=== PATIENT | male | born 1990 | race Caucasian/White ===

== ENCOUNTER 2019-05-03 21:39 | Emergency (ER) | payer SELFPAY ==
[~2019-05-03] VITALS: Ht 180.3 cm; Wt 75.0 kg
[2019-05-03] MEDS ORDERED: LORazepam 1MG TABLET PO ONE (22:00)
--- NOTE | 2019-05-03 22:03 | NUR ---
PT AMBUALTORY TO ED [facility] FROM "HOME" (STAYING [facility]). STATES EARLIER TODAY "EVERYTHING JUST CAME TO A HEAD AND I COULDNT CONTROL IT AND I TRIED TO GET THE GUN OUT OF MY LOCKBOX BUT I COULDNT FIND THE KEYS AND I THOUGHT I CANT DO THIS AT SOMEONE ELSES HOUSE SO I CALLED [phone]". PT COOPERATIVE BUT TEARFUL, SLIGHTLY ANXIOUS. PT STATES HE HAS HAD IN PATIENT THERAPY FOR DETOX OF ETOH IN PAST & PLACED ON DEPRESSION MEDS, BUT THAT WAS 4 YRS AGO. PT STATES HE DRANK ~1-15 DRINKS TODAY, DENIES ANY DRUG USE TODAY. CHANGED INTO GOWN. BELONGSING PLACED IN LOCKER. PT UNABLE TO PROVIDE URINE SAMPLE AT THIS TIME. GIVEN BLANKET. SITTER OUTSIDE OF ROOM. WILL CTM.
[2019-05-03] MEDS ORDERED: LORazepam 1MG TABLET ONE (22:08)
[2019-05-03 22:20] LABS: BASOPHILS # (AUTO) 0.03 x10^3/uL (0-0.1); BASOPHILS % (AUTO) 0 % (0-1); EOSINOPHILS # (AUTO) 0.15 x10^3/uL (0-0.4); EOSINOPHILS % (AUTO) 2 % (1-7); LYMPHOCYTES # (AUTO) 2.03 x10^3/uL (1-3.4); LYMPHOCYTES % (AUTO) 24 % (22-44); MD NO; MEAN CORPUSCULAR HEMOGLOBIN 30.7 pg (27.5-34.5); MEAN CORPUSCULAR HGB CONC 32.8 g/dL (33.2-36.2); MEAN CORPUSCULAR VOLUME 93.7 fL (81-97); MEAN PLATELET VOLUME 7.4 fL (7.4-10.4); MONOCYTES # (AUTO) 0.88 x10^3/uL (0.2-0.8); MONOCYTES % (AUTO) 11 % (2-9); NEUTROPHILS # (AUTO) 5.28 x10^3/uL (1.8-6.8); NEUTROPHILS % (AUTO) 63 % (42-75); PLATELET COUNT 325 x10^3/uL (130-400); RED BLOOD COUNT 5.23 x10^6/uL (4.38-5.82); RED CELL DISTRIBUTION WIDTH 14.3 % (9.4-14.8)
[2019-05-03] MEDS ORDERED: PLEASE ENTER ALLERGIES MC SCH (22:30)
[2019-05-03 22:33] LABS: ALBUMIN 3.8 g/dL (3.4-5.0); ANION GAP 8 mmol/L (5-15); CALCIUM 8.3 mg/dL (8.5-10.1); CHLORIDE 110 mmol/L (98-107)
[2019-05-03 22:36] LABS: CREATININE 0.87 mg/dL (0.7-1.3); SALICYLATE LEVEL < 1.7 mg/dL (2.8-20.0)
--- NOTE | 2019-05-03 23:20 | NUR ---
PT APPEARS SLIGHTLY LESS ANXIOUS. RESTING ON CART. RR EVEN NON LABORED. SITTER OUTSIDE OF ROOM. WILL CTM.
[2019-05-04] MEDS ORDERED: LISI-167 PO (00:23)
--- NOTE | 2019-05-04 00:25 | NUR ---
PT RESTING ON SUE, STATED " I HAVE BEEN HAVING SUICIDAL THOUGHTS FOR COUPLE WEEKS", PLAN IS TO SHOOT HIMSELF. PROVIDED PT WITH CUP FOR URINE SAMPLE. ROOM SECURED AND SITTER AT DOORWAY FOR CONTINOUS MONITORING
--- NOTE | 2019-05-04 00:34 | NUR ---
URINE SAMPLE SENT
--- NOTE | 2019-05-04 00:59 | NUR ---
PT SITTING UP ON GURNEY WITH EYES CLOSED, REPIRATIONS EVEN AND UNLABORED, SITTER AT DOORWAY FOR CONTINOUS MONITORING
[2019-05-04 01:08] LABS: AMPHETAMINE SCREEN, URINE Negative (Negative); BARBITURATE SCREEN, URINE Negative (Negative); BENZODIAZEPINE SCREEN, URINE Negative (Negative); CANNABINOID SCREEN, URINE Negative (Negative); COCAINE SCREEN, URINE Negative (Negative); METHADONE SCREEN, URINE Negative (Negative); OPIATE SCREEN, URINE Negative (Negative)
--- NOTE | 2019-05-04 01:58 | NUR ---
PT RESTING ON GURNEY WITH EYES CLOSED, RESPIRATIONS EVEN AND UNLABORED, SITTER AT DOORWAY FOR CONTINOUS MONITORING.
--- NOTE | 2019-05-04 02:12 | NUR ---
PT RESTING ON GURNEY, PROVIDED PT WITH DRINK, REFUSED WANTING SOMETHING TO EAT, STATED "THEY GAVE ME FOOD EARLIER", SITTER AT DOORWAY FOR CONTINOUS MONITORING
--- NOTE | 2019-05-04 03:03 | NUR ---
PT RESTING WITH EYES CLOSED, NAD, EQUAL CHEST RISE/FALL OBSERVED, SITTER AT DOORWAY FOR CONTINOUS MONITORING.
[2019-05-04] MEDS ORDERED: LORazepam 1MG TABLET ONE (03:20)
--- NOTE | 2019-05-04 03:21 | NUR ---
PT RESTING ON GURNEY, PT STATED " I'M FEELING ANXIOUS, CAN I GET SOME MORE MEDICATION. NOTED PT WITH SLIGHT TREMOR TO B/L HANDS. ERP UPDATED REGARDING PT STATUS, ORDER RECEIVED, PT MEDICATED PER MAR
[2019-05-04] MEDS ORDERED: LORazepam 1MG TABLET PO ONE (03:30)
--- NOTE | 2019-05-04 03:43 | NUR ---
SOC ON TELEPHIONE, UPDATED MD REGARDING PT STATUS, H/X, MEDICATIONS AND VS. MD TO CONSULT WITH PT
--- NOTE | 2019-05-04 03:46 | NUR ---
TELE PSYCH CONSULT IN PROGRESS
--- NOTE | 2019-05-04 04:07 | NUR ---
SOC ON TELEPHONE, STATED HE RECOMMENDS PT ADMIT TO PSYCHIATRY, MD TO FAX RECOMMENDATIONS
--- NOTE | 2019-05-04 04:54 | NUR ---
PROVIDED PT WITH HOSPITAL BED AND PILLOW. PT RESTING CALMLY, DENIES FURTHER NEEDS AT THIS TIME, SITTER AT DOORWAY FOR CONTINOUS MONITORING
--- NOTE | 2019-05-04 05:35 | NUR ---
referral was faxed to [facility]
--- NOTE | 2019-05-04 06:03 | NUR ---
PT RESTING IN BED, EYES CLOSED, RESPIRATIONS EVEN AND UNLABORED, SITTER AT DOORWAY FOR CONTINOUS MONITORING.
--- NOTE | 2019-05-04 06:51 | NUR ---
RECEIVED REPORT FROM LILA CHADWICK, PLAN OF CARE DISCUSSED.
--- NOTE | 2019-05-04 07:08 | NUR ---
PT SLEEPING, RESP EVEN AND UNLABORED, BREAKFAST ORDERED, ROOM SECURED, SITTER AT DOOR.
[2019-05-04 07:54] VITALS: BP 130/80
--- NOTE | 2019-05-04 07:55 | NUR ---
BREAKFAST AND LARGE WATER PROVIDED. PT COOPERATIVE, VERBALIZED NO OTHER NEEDS AT THIS TIME. ROOM REMAINS SECURED, SITTER AT DOOR
--- NOTE | 2019-05-04 08:33 | NUR ---
PT AT 100% BREAKFAST, VERBALIZED NO OTHER NEEDS AT THIS TIME
--- NOTE | 2019-05-04 09:41 | NUR ---
PT SLEEPING, RESP EVEN AND UNLABORED, ROOM REMAINS SECURED, SITTER AT DOOR.
--- NOTE | 2019-05-04 11:36 | NUR ---
PT SLEEPING, RESP EVEN AND UNLABORED, ROOM SECURED, SITTER AT DOOR.
--- NOTE | 2019-05-04 11:51 | NUR ---
RECEIVED A CALL FROM GIRLFRIEND YRIS AT [phone]. EXPLAINED WHEN PT AWAKES WILL GIVE HIM NUMBER TO CALL
--- NOTE | 2019-05-04 12:00 | NUR ---
GAVE PATIENT NUMBER, DOES NOT WANT TO CALL HER. PT ASKED QUESTIONS REGARDING LEGAL HOLD AND WHY HE IS HERE, EXPLAINED LEGAL HOLD, PT VERBALIZED UNDSTANDING
--- NOTE | 2019-05-04 12:07 | NUR ---
LUNCH MEAL PROVIDED, PT UP TO BATHROOM, ROOM REMAINS SECURED. SITTER AT DOOR
--- NOTE | 2019-05-04 12:41 | NUR ---
PER KWAME HANEY PT WILL BE OFF LEGAL HOLD, GAVE PATIENT BELONGINGS, AWAITING SW FOR DISCHARGE DISCUSSION FOR OUTPT DETOX AND PAPERWORK. PT VERBALIZED UNDERSTANDING
--- NOTE | 2019-05-04 13:03 | NUR ---
Patient/Caregiver given discharge instructions and they have confirmed that they understand the instructions. Patient ambulatory with steady gait.
== END 2019-05-04 13:05 | disposition home or self-care (01) ==
LOC: ED 21:55
DX: R45.851 Suicidal ideations (principal); F10.220 Alcohol dependence with intoxication, uncomplicated; F32.9 Major depressive disorder, single episode, unspecified; I10 Essential (primary) hypertension; Y90.0 Blood alcohol level of less than 20 mg/100 ml
CPT/HCPCS: 36415; 80048; 80307; 82040; 85025; 99284

== ENCOUNTER 2019-05-05 18:58 | Emergency (ER) | payer SELFPAY ==
[~2019-05-05] VITALS: Ht 177.8 cm; Wt 73.7 kg
[~2019-05-05 18:58] MED LIST: LISI-167 PO
[2019-05-05 19:01] VITALS: BP 140/90
--- NOTE | 2019-05-05 19:07 | NUR ---
PAYROLL AND BENEFITS MANAGER AWARE SI PT IS IN ROOM T1.
--- NOTE | 2019-05-05 19:33 | NUR ---
PT resting on gurvielka, tearful and stated that his sister brought him here becuse i'm suicidal, plan is to shoot himself, pt stated he has access to gun. pt recently seen here for same and d/c'd yesterday. pt stated that he drinks 10-15 drinks daily, last dring was 1700 today, when this rn asked what type of alcohol he drinks pt stated " whatever i can get my hands on". removed all pt's belongings and place (1 bag) in security locker, provided pt with urine cup for sample, sitter at doorway for continous monitoring
[2019-05-05 19:46] LABS: MEAN CORPUSCULAR HEMOGLOBIN 30.8 pg (27.5-34.5); MEAN CORPUSCULAR VOLUME 93.3 fL (81-97); MEAN PLATELET VOLUME 7.3 fL (7.4-10.4); PLATELET COUNT 340 x10^3/uL (130-400); RED BLOOD COUNT 5.45 x10^6/uL (4.38-5.82); RED CELL DISTRIBUTION WIDTH 14.4 % (9.4-14.8)
[2019-05-05 19:57] LABS: ALBUMIN 3.9 g/dL (3.4-5.0); ANION GAP 5 mmol/L (5-15); CHLORIDE 111 mmol/L (98-107); CREATININE 0.88 mg/dL (0.7-1.3)
[2019-05-05 20:00] LABS: SALICYLATE LEVEL < 1.7 mg/dL (2.8-20.0)
[2019-05-05 20:01] LABS: BASOPHILS # (AUTO) 0.06 x10^3/uL (0-0.1); BASOPHILS % (AUTO) 1 % (0-1); EOSINOPHILS # (AUTO) 0.27 x10^3/uL (0-0.4); EOSINOPHILS % (AUTO) 3 % (1-7); LYMPHOCYTES # (AUTO) 2.38 x10^3/uL (1-3.4); LYMPHOCYTES % (AUTO) 27 % (22-44); MONOCYTES # (AUTO) 1.46 x10^3/uL (0.2-0.8); MONOCYTES % (AUTO) 17 % (2-9); NEUTROPHILS # (AUTO) 4.53 x10^3/uL (1.8-6.8); NEUTROPHILS % (AUTO) 52 % (42-75)
[2019-05-05 20:02] LABS: MD SCAN
--- NOTE | 2019-05-05 20:10 | NUR ---
assisted pt with transfer to ed room 40, room secured, garage doors down, sitter at doorway for continous monitoring
[2019-05-05 21:00] LABS: AMPHETAMINE SCREEN, URINE Negative (Negative); BARBITURATE SCREEN, URINE Negative (Negative); BENZODIAZEPINE SCREEN, URINE Negative (Negative); CANNABINOID SCREEN, URINE Negative (Negative); COCAINE SCREEN, URINE Negative (Negative); METHADONE SCREEN, URINE Negative (Negative); OPIATE SCREEN, URINE Negative (Negative)
--- NOTE | 2019-05-05 21:09 | NUR ---
PT RESTING ON SUE YELLING OUT " I DON'T WANT TO BE HERE, WHY DID MY SISTER BRING ME HERE?", DISCUSSED POC WITH PT AND WHEN THIS RN ASKED PT WHAT I COULD DO TO MAKE HIM MORE COMFORTABLE, IF HE WOULD LIKE FOOD OR DRINK HE REFUSED AND STATED "NO, NOT HERE, I DON'T WANT TO BE AROUND ANYMORE", PT THAN STARTED PUNCHING HIMSELF IN THE LEG, DISCUSSED WITH PT THAT I CAN NOT LET HIM HARM HIMSELF, PT THAN AGREED TO STOP AND NOT HIT HIMSELF ANYMORE. DANNY PEREZ UPDATED ON PT STATUS AND WILL PLACE ORDER FOR ATIVAN. SITTER REMAINS AT DOORWAY FOR CONTINOUS MONITORING
[2019-05-05] MEDS ORDERED: LORazepam 1MG TABLET ONE (21:18)
--- NOTE | 2019-05-05 21:25 | NUR ---
pt medicated per mar
[2019-05-05] MEDS ORDERED: LORazepam 1MG TABLET PO ONE (21:30)
--- NOTE | 2019-05-05 21:35 | NUR ---
provided pt with drink, sandwich and chips, si precautions maintained.
--- NOTE | 2019-05-05 22:14 | NUR ---
PT RESTING ON GUENEY WITH EYES CLOSED, NADN, RESPIRATIONS EVEN AND UNLABORED, PT ATE 100% OF SANDWICH, ROOM REMAINS SECURED, SITTER IN BURNS FOR MONITORING.
--- NOTE | 2019-05-05 23:00 | NUR ---
PT RESTING WITH EYES CLOSED AROUSES EASILY TO VERBAL RESPONSE, NAD, PROVIDED PT WITH PILLOW AND SOME XTRA WARM BLANKETS, DENIES FURTHER NEEDS, SITTER IN BURNS FOR CONTINOUS MONITORING
--- NOTE | 2019-05-06 | NUR ---
PT RESTING ON GURNEY WITH EYES CLOSED, NADN, RESPIRATIONS EVEN AND UNLABORED, SITTER IN BURNS FOR MONITORING.
[2019-05-06] MEDS ORDERED: hydrOXyzine 50MG TABLET ONE (01:38)
--- NOTE | 2019-05-06 01:39 | NUR ---
PT RESTLESS AND FIGETING, REQUESTING MEDICATION TO HELP HIM SLEEP PA UPDATED AND WILL PLACE ORDER Addendum: 05/06/19 at 0146 by ROBERTA sitter at doorway for continous monitoring
[2019-05-06] MEDS ORDERED: hydrOXyzine 50MG TABLET PO ONE (02:00)
--- NOTE | 2019-05-06 02:29 | NUR ---
FLOAT RN: PT RESTING IN ROOM. NO ACUTE DISTRESS NOTED. SITTER AT DOOR. WILL CONTINUE TO MONITOR WHILE PRIMARY RN IS ON BREAK.
--- NOTE | 2019-05-06 02:57 | NUR ---
PT RESTING IN BED WITH EYES CLOSED, REPOSITIONED SELF ON GURNEY, EQUAL CHEST RISE/FALL OBSERVED, SITTER IN BURNS FOR CONTINOUS MONITORING.
--- NOTE | 2019-05-06 04:16 | NUR ---
PT RESTING ON LASHAWN ROGERS, AWAITING TELE PSYCH CONSULT, SITTER IN BURNS FOR CONTINOUS MONITORING.
--- NOTE | 2019-05-06 04:57 | NUR ---
PT RESTING CALMLY, DENIES SI/HI THOUGHTS, PT STATED HE IS READY FOR D/C AND REQUESTING PERSONAL BELONINGS. ERP UPDATED ON PT STATUS AND REQUESTING D/C HOME
== END 2019-05-06 05:02 | disposition home or self-care (01) ==
LOC: ED 20:51
DX: F10.129 Alcohol abuse with intoxication, unspecified (principal); Y90.9 Presence of alcohol in blood, level not specified; F19.90 Other psychoactive substance use, unspecified, uncomplicated
CPT/HCPCS: 36415; 80048; 80307; 82040; 85025; 99283

== ENCOUNTER 2020-01-31 01:04 | Inpatient (IN) | payer MEDICAID ==
[~2020-01-31] VITALS: Ht 180.3 cm; Wt 81.1 kg
[2020-01-31] MEDS ORDERED: POLYETHYLENE GLYCOL 17 GM PACKET PO PRN (02:00)
[2020-01-31] MEDS ORDERED: DOCUSATE 100 MG CAPSULE PO PRN (02:00)
[2020-01-31] MEDS ORDERED: ACETAMINOPHEN 325 MG TABLET PO PRN (02:00)
[2020-01-31] MEDS ORDERED: BISACODYL 10 MG SUPP PR PRN (02:00)
[2020-01-31] MEDS ORDERED: ONDANSETRON ODT 4 MG PO PRN (02:00)
[2020-01-31 02:30] VITALS: BP 142/83
[2020-01-31] MEDS: LORazepam 1MG TABLET PO SCH ×4 (03:30→20:05)
[2020-01-31 03:43] VITALS: BP 142/83
[2020-01-31 07:00] VITALS: BP 149/90
[2020-01-31 09:55] VITALS: BP 148/89
[2020-01-31] MEDS: TOPIRAMATE 25 MG TABLET PO SCH ×2 (11:31→20:05)
[2020-01-31] MEDS ORDERED: SUMATRIPTAN 50 MG TABLET PO PRN (12:00)
[2020-01-31] MEDS: LISINOPRIL 10 MG TABLET PO SCH (12:14)
[2020-01-31] MEDS: NICOTINE 14MG/24 HR PATCH.TD24 TD SCH (12:15)
[2020-01-31 13:49] LABS: MICROSCOPIC NOT IND
[2020-01-31 19:02] VITALS: BP 137/89
[2020-01-31] MEDS ORDERED: LORazepam 1MG TABLET PO ONE (22:00)
[2020-02-01] MEDS: LORazepam 1MG TABLET PO SCH ×4 (02:00→20:01)
[2020-02-01 06:35] LABS: FREE T4 (FREE THYROXINE) 0.95 ng/dL (0.76-1.46); LDL/HDL RATIO 1.7 (0.5-3.0)
[2020-02-01 07:20] VITALS: BP 136/89
[2020-02-01] MEDS: LISINOPRIL 10 MG TABLET PO SCH (08:37)
[2020-02-01] MEDS: TOPIRAMATE 25 MG TABLET PO SCH ×2 (08:37→20:01)
[2020-02-01] MEDS: NICOTINE 14MG/24 HR PATCH.TD24 TD SCH (12:30)
[2020-02-01 20:00] VITALS: BP 129/78
[2020-02-02] MEDS: LORazepam 1MG TABLET PO SCH ×4 (02:04→22:32)
[2020-02-02 07:08] VITALS: BP 120/81
[2020-02-02] MEDS: TOPIRAMATE 25 MG TABLET PO SCH ×2 (08:55→22:32)
[2020-02-02] MEDS: LISINOPRIL 10 MG TABLET PO SCH (08:55)
[2020-02-02] MEDS: VRAYLAR 1.5 MG PO SCH (08:56)
[2020-02-02] MEDS: NICOTINE 14MG/24 HR PATCH.TD24 TD SCH (09:13)
[2020-02-02 19:35] VITALS: BP 118/74
[2020-02-03] MEDS: LORazepam 1MG TABLET PO SCH ×4 (02:00→20:19)
[2020-02-03 07:12] VITALS: BP 122/74
[2020-02-03] MEDS: LISINOPRIL 10 MG TABLET PO SCH (09:23)
[2020-02-03] MEDS: TOPIRAMATE 25 MG TABLET PO SCH ×2 (09:23→20:19)
[2020-02-03] MEDS: VRAYLAR 1.5 MG PO SCH (09:24)
[2020-02-03] MEDS: NICOTINE 14MG/24 HR PATCH.TD24 TD SCH (09:25)
[2020-02-03 19:33] VITALS: BP 129/71
[2020-02-04] MEDS: LORazepam 1MG TABLET PO SCH ×4 (01:55→19:50)
[2020-02-04 07:24] VITALS: BP 109/70
[2020-02-04] MEDS: TOPIRAMATE 25 MG TABLET PO SCH ×2 (08:21→19:50)
[2020-02-04] MEDS: VRAYLAR 3 MG PO SCH (08:21)
[2020-02-04] MEDS: LISINOPRIL 10 MG TABLET PO SCH (08:21)
[2020-02-04] MEDS: NICOTINE 14MG/24 HR PATCH.TD24 TD SCH (12:30)
[2020-02-04 20:00] VITALS: BP 130/78
[2020-02-05] MEDS: LORazepam 1MG TABLET PO SCH (02:05)
[2020-02-05 06:29] VITALS: BP 114/73
[2020-02-05] MEDS: LISINOPRIL 10 MG TABLET PO SCH (08:13)
[2020-02-05] MEDS: TOPIRAMATE 25 MG TABLET PO SCH (08:14)
[2020-02-05] MEDS: VRAYLAR 3 MG PO SCH (08:27)
[2020-02-05] MEDS ORDERED: TOPI25TA32 PO (10:47)
[2020-02-05] MEDS ORDERED: VRAYLAR PO (10:47)
[2020-02-05] MEDS ORDERED: NICO-486 TD (10:47)
[2020-02-05] MEDS ORDERED: LISI-167 PO (10:47)
== END 2020-02-05 12:28 | disposition home or self-care (01) | DRG 751 ==
LOC: 3E 02:28
PROVIDERS: ADMIT Psychiatry & Neurology Psychosomatic Medicine; ATTEND Psychiatry & Neurology Psychosomatic Medicine
DX: F33.2 Major depressive disorder, recurrent severe without psychotic features (principal); I10 Essential (primary) hypertension; R45.851 Suicidal ideations; F17.200 Nicotine dependence, unspecified, uncomplicated; F10.20 Alcohol dependence, uncomplicated; Z79.899 Other long term (current) drug therapy; Z88.0 Allergy status to penicillin; Z88.1 Allergy status to other antibiotic agents; Z71.6 Tobacco abuse counseling
CPT/HCPCS: 36415; 71045; 80061; 81003; 82607; 84439; 84443; 93005